=== PATIENT | male | born 1980 | race Two or more races ===

== ENCOUNTER 2025-02-26 02:39 | Emergency (ER) | payer SELFPAY ==
[~2025-02-26] VITALS: Ht 180.3 cm; Wt 92.5 kg
[2025-02-26 02:43] VITALS: TEMP 99.4
[2025-02-26 03:47] LABS: BASO # 0.1 10^3/uL (0.0-0.2); BASO % 0.6 % (0.0-1.0); EOS # 0.0 10^3/uL (0.0-0.5); EOS % 0.2 % (0.0-3.0); LYMPH # 1.7 10^3/uL (1.5-5.0); LYMPH % 18.9 % (24.0-44.0); MONO # 0.4 10^3/uL (0.0-0.8); MONO % 4.4 % (2.0-8.0); NEUTROPHILS # 6.7 10^3/uL (1.5-8.5); NEUTROPHILS % 75.6 % (36.0-66.0); PLATELET COUNT, AUTOMATED 273 10^3/uL (150-450)
[2025-02-26] MEDS: BOOSTRIX VACCINE (TETANUS/DIPHTH/ACEL. PERTUSSIS) 0.5 ML SYR IM.IMMUN ONE (04:04)
[2025-02-26] MEDS ORDERED: ISOVUE-370 76% 100 ML VIAL As Ordered ONE (04:50)
[2025-02-26 05:00] VITALS: BP 123/67
[2025-02-26 06:00] VITALS: O2SAT 96
[2025-02-26] MEDS ORDERED: PERCOCET 5MG/325MG TAB PO ONE (06:00)
== END 2025-02-26 06:25 | disposition left against medical advice (07) ==
LOC: M ED 02:39
DX: S05.51XA Penetrating wound with foreign body of right eyeball, initial encounter (principal); Z53.9 Procedure and treatment not carried out, unspecified reason; X58.XXXA Exposure to other specified factors, initial encounter; Y92.410 Unspecified street and highway as the place of occurrence of the external cause; Y93.9 Activity, unspecified; Y99.9 Unspecified external cause status
CPT/HCPCS: 70481; 80047; 85025; 90471; 90715; 99284; Q9967